=== PATIENT | male | born 2000 | race African-American/Black ===

== ENCOUNTER 2019-11-02 01:06 | Emergency (ER) | payer SELFPAY ==
[~2019-11-02] VITALS: Ht 188 cm; Wt 83.2 kg
[2019-11-02 01:16] VITALS: BP 124/65
--- NOTE | 2019-11-02 01:22 | PHYS DOC ---
Past Medical History Past Medical History: Other Additional Past Medical Histor: CIPD Past Surgical History: Other Additional Past Surgical Histo: muscle biopsy Smoking Status: Never Smoker Alcohol Use: None Drug Use: None Adult General Chief Complaint Chief Complaint: ANKLE PROBLEM HPI HPI 19-year-old male presents emerged department complaints of right ankle pain. Patient states he was playing basketball came down and landed on someone's foot inverting his ankle. Patient states he was not able to walk on it however now is able to walk. He states the pain is still present. Mainly tender to palpation on the right lateral malleolus. He has had some swelling appreciated on examination. Denies any numbness or tingling. Ambulating makes his pain worse. Review of Systems Review of Systems Constitutional: Denies fever or chills [] Respiratory: Denies cough or shortness of breath [] Cardiovascular: No additional information not addressed in HPI [] Musculoskeletal: right ankle pain Neurologic: Denies headache, focal weakness or sensory changes [] All other systems were reviewed and found to be within normal limits, except as documented in this note. Allergies Allergies Allergies Coded Allergies Type Severity Reaction Last Updated Verified No Known Drug Allergies 05/01/14 No Physical Exam Physical Exam Constitutional: Well developed, well nourished, no acute distress, non-toxic appearance. [] Cardiovascular:Heart rate regular rhythm, no murmur [] Lungs & Thorax: Bilateral breath sounds clear to auscultation [] Skin: Warm, dry, no erythema, no rash. [] Back: No tenderness, no CVA tenderness. [] Extremities: TTP right ankle along right malleolus, some bruising appreciated Neurologic: Alert and oriented X 3, no focal deficits noted. [] Psychologic: Affect normal, judgement normal, mood normal. [] Current Patient Data Vital Signs Vital Signs Date Time Temp Pulse Resp B/P (MAP) Pulse Ox O2 Delivery O2 Flow Rate FiO2 11/02/19 01:16 98.2 81 12 124/65 (84) 98 Room Air 98.2 EKG EKG [] Radiology/Procedures Radiology/Procedures [] Course & Med Decision Making Course & Med Decision Making Pertinent Labs and Imaging studies reviewed. (See chart for details) []19-year-old male presents emerged department complaints of right ankle pain. Patient states he was playing basketball came down and landed on someone's foot inverting his ankle. Patient states he was not able to walk on it however now is able to walk. He states the pain is still present. Mainly tender to palpation on the right lateral malleolus. He has had some swelling appreciated on examination. Denies any numbness or tingling. Ambulating makes his pain worse. Xray negative for acute fracture Recommend dc home Tylenol/Motrin as needed for pain No sports at this time Dragon Disclaimer Dragon Disclaimer This electronic medical record was generated, in whole or in part, using a voice recognition dictation system. Departure Departure Impression: Primary Impression: Ankle sprain Disposition: HOME, SELF-CARE Condition: STABLE Referrals: NO PCP (PCP) Patient Instructions: Ankle Sprain, [id number] Additional Instructions: Juan wrap as needed Xray without acute fracture on exam Tylenol/Motrin as needed for pain Recommend limiting basketball playing over the next 3 - 4 days 2/2 injury Problem Qualifiers Primary Impression: Ankle sprain Encounter type: initial encounter Involved ligament of ankle: unspecified ligament Laterality: right Qualified Codes: S93.401A - Sprain of unspecified ligament of right ankle, initial encounter MAIN MARIE MD Nov 02, 2019 01:22
--- NOTE | 2019-11-02 02:07 | RAD ---
ANKLE RIGHT 3V DATE: 11/02/2019 1:18 AM INDICATION: Pain after inverting ankle COMPARISON: None. FINDINGS: Bones: There is no evidence of acute fracture or dislocation. Joints: The ankle mortise is congruent. No widening of the distal tibiofibular syndesmosis. Miscellaneous: Lateral soft tissue swelling. IMPRESSION: No evidence of acute fracture. Electronically signed by: Heron Puckett MD (11/02/2019 2:04 AM) [id number]
== END 2019-11-02 02:17 | disposition home or self-care (01) ==
LOC: ER 01:06
DX: S93.491A Sprain of other ligament of right ankle, initial encounter (principal); R60.0 Localized edema; Z98.890 Other specified postprocedural states; W01.0XXA Fall on same level from slipping, tripping and stumbling without subsequent striking against object, initial encounter; Y93.89 Activity, other specified; Y92.89 Other specified places as the place of occurrence of the external cause; Y99.8 Other external cause status
CPT/HCPCS: 73610; 99283